=== PATIENT | female | born 1955 | race Caucasian/White ===

== ENCOUNTER 2018-09-10 07:34 | Day surgery (SDC) | payer OTHER ==
[~2018-09-10] VITALS: Ht 154.9 cm; Wt 77.5 kg
[2018-09-10 10:00] VITALS: Ht 154.9 cm; Wt 77.5 kg
[2018-09-10] MEDS ORDERED: PROPOFOL 20 ML ONE (10:03)
[2018-09-10] MEDS ORDERED: LOSARTAN (10:04)
[2018-09-10] MEDS ORDERED: ATORVASTATIN (10:04)
[2018-09-10] MEDS ORDERED: LIPITOR (10:04)
[2018-09-10] MEDS ORDERED: METFORMIN (10:04)
--- NOTE | 2018-09-10 10:12 | PREAC ---
Date/Time of Note Date/Time of Note DATE: 09/10/18 TIME: 10:11 Anesthesia Eval and Record Evaluation Time Pre-Procedure Interview DATE: 09/10/18 TIME: 10:11 Age 63 Sex female NPO: 8 hrs Preoperative diagnosis Colon screening Planned procedure Colonoscopy Past Medical History Past Medical History: Includes Cardio: HTN, Dyslipidemia Endo: Diabetes GI: GERD, Obesity Surgery & Anesthesia Issues No known issue Meds Anticoagulation: No Beta Josh within 24 hr: No Reason Beta Josh not given: Pt. not on B-Josh Reported Medications [Lipitor] No Conflict Check 09/10/18 [Atorvastatin] No Conflict Check 09/10/18 [Metformin] No Conflict Check 09/10/18 [Losartan] No Conflict Check 09/10/18 Meds reviewed: Yes Allergies Uncoded Allergies: ASPIRIN (Allergy, Intermediate, MOUTH SWELLING, 09/10/18) Allergies Reviewed: Yes Labs/Studies Labs Reviewed: Reviewed by anesthesiologist test: N/A Pre-procedure Exam Airway: Adequate mouth opening Mallampati: Mallampati II Teeth: Normal Lung: Normal Heart: Normal ASA Physical Status ASA physical status: 3 Emergency: None Planned Anesthetic General/MAC: MAC Planned Pain Management Parenteral pain med Pre-operative Attestations Prior to commencing anesthesia and surgery, the patient was re-evaluated, there was verification of: *The patient's identity *The results of appropriate recent lab work and preoperative vital signs *The above evaluation not changing prior to induction *Anesthetic plan, risk benefits, alternative and complications discussed with patient/family; questions answered; patient/family understands, accepts and wishes to proceed. TERRI MACDONALD MD Sep 10, 2018 10:12
[2018-09-10 10:23] VITALS: BP 155/71; PULSE 64; RESP 18
[2018-09-10] MEDS ORDERED: MEPERIDINE 25 MG INJ IV PRN (11:00)
[2018-09-10] MEDS ORDERED: DIPHENHYDRAMINE 50 MG INJ IV PRN (11:00)
[2018-09-10] MEDS ORDERED: OXYCODONE/ACETAMINOPHEN (5/325) TAB PO PRN ×2 (11:00)
[2018-09-10] MEDS ORDERED: EPHEDrine SULFATE 50 MG/5 ML SYG IV PRN (11:00)
[2018-09-10] MEDS ORDERED: MIDAZOLAM 1 MG/ML 2 ML INJ IV PRN (11:00)
[2018-09-10] MEDS ORDERED: LABETALOL HCL 20MG INJ IV PRN (11:00)
[2018-09-10] MEDS ORDERED: hydrALAzine 20 MG INJ IV PRN (11:00)
[2018-09-10] MEDS ORDERED: FENTAnyl 50 MCG/ML VIAL IV PRN ×3 (11:00)
[2018-09-10] MEDS ORDERED: METOCLOPRAMIDE 10 MG INJ IV PRN (11:00)
[2018-09-10] MEDS ORDERED: ONDANSETRON 4 MG INJ IV PRN (11:00)
--- NOTE | 2018-09-10 11:30 | PAC ---
Date/Time of Note Date/Time of Note DATE: 09/10/18 TIME: 11:29 Post-Anesthesia Notes Post-Anesthesia Note Last documented vital signs Vital Signs Date Temp Pulse Resp B/P (MAP) Pulse Ox O2 O2 Flow FiO2 Time Delivery Rate 09/10/18 97.7 64 18 155/71 98 Room Air 10:23 (99) Activity: WNL Respiratory function: WNL Cardiovascular function: WNL Mental status: Baseline Pain reasonably controlled: Yes Hydration appropriate: Yes Nausea/Vomiting absent: Yes Comments BP: 149/73, HR: 65, PULSE OX: 97, RR: 18 TERRI MACDONALD MD Sep 10, 2018 11:30
[2018-09-10 11:40] VITALS: BP 161/77; PULSE 58; RESP 20
== END 2018-09-10 12:18 | disposition home or self-care (01) ==
LOC: GIL 07:34
PROVIDERS: ATTEND Internal Medicine Gastroenterology
DX: Z12.11 Encounter for screening for malignant neoplasm of colon (principal); K64.8 Other hemorrhoids; K57.30 Diverticulosis of large intestine without perforation or abscess without bleeding; I10 Essential (primary) hypertension; E78.5 Hyperlipidemia, unspecified; E11.9 Type 2 diabetes mellitus without complications; E66.9 Obesity, unspecified; Z68.32 Body mass index [BMI] 32.0-32.9, adult
CPT/HCPCS: 82962